=== PATIENT | female | born 1990 ===

== ENCOUNTER 2019-12-07 18:08 | Emergency (ER) | payer BC ==
[~2019-12-07] VITALS: Ht 157.5 cm; Wt 112.5 kg
[2019-12-07 18:56] LABS: BASOPHILS ABSOLUTE AUTO 0.04 K/mm3 (0.00-0.23); BASOPHILS PERCENT AUTO 0 % (0-2); EOSINOPHILS PERCENT AUTO 1 % (0-6); Hematocrit 37.4 % (33.0-51.0); IMMATURE GRAN ABSOLUTE AUTO 0.03 K/mm3 (0.00-0.10); IMMATURE GRAN PERCENT AUTO 0 % (0-1); LYMPHOCYTES PERCENT AUTO 39 % (21-46); MONOCYTES ABSOLUTE AUTO 0.56 K/mm3 (0.16-1.47); MONOCYTES PERCENT AUTO 6 % (4-13); Mean Corpuscular HGB 27.1 pg (26.0-34.0); Mean Corpuscular HGB Conc 32.1 g/dL (31.5-36.5); Mean Corpuscular Volume 85 fL (80-100); Mean Platelet Volume 11.2 fL (9.1-12.4); NEUTROPHILS ABSOLUTE AUTO 5.16 K/mm3 (1.96-9.15); NEUTROPHILS PERCENT AUTO 54 % (41-73); Platelet Count 338 K/mm3 (150-400); RDW Coefficient Variation 14.7 % (11.7-14.2); RDW Standard Deviation 45.4 fL (35.1-46.3); Red Blood Cell Count 4.42 M/mm3 (3.80-5.20); White Blood Cell Count 9.59 K/mm3 (4.00-11.30)
[2019-12-07 19:08] LABS: Source, Urine Clean Catch
[2019-12-07 19:13] LABS: Bilirubin, Urine Neg (Neg); Blood, Urine 5+ (Neg); Glucose Qualitative, Urine Neg (Neg); Ketones, Urine 1+ (Neg); Leukocyte Esterase, Urine Neg (Neg); Nitrite, Urine Neg (Neg); Protein, Urine 2+ (Neg); Specific Gravity, Urine 1.025 (1.003-1.022); Urobilinogen, Urine NORM (Normal)
[2019-12-07 19:19] LABS: Alanine Aminotransfer (ALT/SGP 56 U/L (12-78); Albumin, Blood 3.2 g/dL (3.4-5.0); Albumin/Globulin Ratio 0.8 (0.8-1.8); Alk Phos 118 U/L (50-136); Anion Gap 8 mmol/L (6-16); Aspartate Aminotrans (AST/SGOT 32 U/L (12-37); Bilirubin, Total 0.2 mg/dL (0.1-1.0); Blood Urea Nitrogen 11 mg/dL (8-24); CO2, Blood 22 mmol/L (21-32); Calcium, Blood 9.4 mg/dL (8.5-10.1); Chloride, Blood 107 mmol/L (98-108); Creatinine, Blood 0.52 mg/dL (0.40-1.00); Globulin, Blood 4.1 g/dL (2.2-4.0); Glomerular Filtration Rate >60 (60-); Glucose, Blood 90 mg/dL (70-99); Potassium, Blood 3.7 mmol/L (3.5-5.5); Sodium, Blood 137 mmol/L (136-145); Total Protein, Blood 7.3 g/dL (6.4-8.2)
[2019-12-07 19:21] LABS: Appearance, Urine Hazy (Clear); Color, Urine Yellow (P-Yellow)
[2019-12-07 19:23] LABS: Squamous Epithelial Cells Mod /hpf (Few)
[2019-12-07 19:24] LABS: Bacteria Mod /hpf; Mucus Light (0-Heavy); White Blood Cells, Urine Rare /hpf (0-5)
[2019-12-07 19:41] LABS: Beta HCG, Quantitative, Serum 10886 mIU/mL (0-3)
[2019-12-07] MEDS ORDERED: DDAVP (20:58)
[2019-12-07] MEDS ORDERED: NIFE30ER PO (20:59)
[2019-12-07] MEDS ORDERED: LABE200 PO (20:59)
== END 2019-12-07 21:03 | disposition home or self-care (01) ==
LOC: ER 18:08
PROVIDERS: Physician Assistant
DX: O20.0 Threatened abortion (principal); O99.89 Other specified diseases and conditions complicating pregnancy, childbirth and the puerperium; R19.7 Diarrhea, unspecified; O34.81 Maternal care for other abnormalities of pelvic organs, first trimester; N83.201 Unspecified ovarian cyst, right side; O16.1 Unspecified maternal hypertension, first trimester; Z3A.01 Less than 8 weeks gestation of pregnancy
CPT/HCPCS: 36415; 76801; 76817; 80053; 81001; 84702; 85025; 86900; 86901; 87086; 99284-25

== ENCOUNTER → 2020-07-12 | Outpatient (CLI) | payer BC ==
[~2020-07-12] MED LIST: DDAVP; IBUP800 PO; LABE100 PO; LABE200 PO; NIFE30ER PO; NIFE60ER PO; Percocet 5-3251 EACH
== END ==
LOC: LAB SHORT 11:40 → LAB 11:40
DX: Z34.83 Encounter for supervision of other normal pregnancy, third trimester (principal); Z3A.36 36 weeks gestation of pregnancy
CPT/HCPCS: 87081; 87653

== ENCOUNTER 2020-07-24 11:40 | Inpatient (IN) | payer BC ==
[~2020-07-24] VITALS: Ht 157.5 cm; Wt 108.1 kg
[~2020-07-24 11:40] MED LIST changes: -IBUP800 PO; -LABE100 PO; -NIFE60ER PO; -Percocet 5-3251 EACH
[2020-07-24] MEDS ORDERED: LABE100 PO ×2 (12:40)
[2020-07-24] MEDS ORDERED: NIFE60ER PO ×2 (12:40)
[2020-07-24 13:29] LABS: BASOPHILS ABSOLUTE AUTO 0.03 K/mm3 (0.00-0.23); BASOPHILS PERCENT AUTO 0 % (0-2); EOSINOPHILS ABSOLUTE AUTO 0.06 K/mm3 (0.00-0.68); EOSINOPHILS PERCENT AUTO 1 % (0-6); Hematocrit 37.1 % (33.0-51.0); IMMATURE GRAN ABSOLUTE AUTO 0.04 K/mm3 (0.00-0.10); IMMATURE GRAN PERCENT AUTO 1 % (0-1); LYMPHOCYTES ABSOLUTE AUTO 2.22 K/mm3 (0.84-5.20); LYMPHOCYTES PERCENT AUTO 26 % (21-46); MONOCYTES ABSOLUTE AUTO 0.71 K/mm3 (0.16-1.47); MONOCYTES PERCENT AUTO 8 % (4-13); Mean Corpuscular HGB 27.8 pg (26.0-34.0); Mean Corpuscular HGB Conc 32.3 g/dL (31.5-36.5); Mean Corpuscular Volume 86 fL (80-100); Mean Platelet Volume 12.4 fL (9.1-12.4); NEUTROPHILS ABSOLUTE AUTO 5.43 K/mm3 (1.96-9.15); NEUTROPHILS PERCENT AUTO 64 % (41-73); Platelet Count 261 K/mm3 (150-400); RDW Coefficient Variation 15.1 % (11.7-14.2); RDW Standard Deviation 47.6 fL (35.1-46.3); Red Blood Cell Count 4.31 M/mm3 (3.80-5.20); White Blood Cell Count 8.49 K/mm3 (4.00-11.30)
--- NOTE | 2020-07-24 13:29 | NUR ---
PT NPO [id number]
[2020-07-24 13:48] LABS: Alanine Aminotransfer (ALT/SGP 30 U/L (12-78); Albumin, Blood 2.5 g/dL (3.4-5.0); Albumin/Globulin Ratio 0.6 (0.8-1.8); Alk Phos 117 U/L (50-136); Anion Gap 9 mmol/L (6-16); Aspartate Aminotrans (AST/SGOT 16 U/L (12-37); Bilirubin, Total 0.2 mg/dL (0.1-1.0); Blood Urea Nitrogen 11 mg/dL (8-24); Bun/Creatinine Ratio 17.7 (12.0-20.0); CO2, Blood 23 mmol/L (21-32); Calcium, Blood 10.1 mg/dL (8.5-10.1); Chloride, Blood 110 mmol/L (98-108); Creatinine, Blood 0.62 mg/dL (0.40-1.00); Globulin, Blood 4.3 g/dL (2.2-4.0); Glomerular Filtration Rate >60 (60-); Glucose, Blood 84 mg/dL (70-99); Potassium, Blood 4.1 mmol/L (3.5-5.5); Sodium, Blood 142 mmol/L (136-145); Total Protein, Blood 6.8 g/dL (6.4-8.2)
[2020-07-24 18:13] LABS: PCO2 Cord - Arterial 60.1 mmHg (40-50); PO2 Cord - Arterial 19.5 mmHg (16-20)
[2020-07-24 18:14] LABS: pH Umbilical Cord - Venous 7.35 (7.26-7.35)
[2020-07-24 18:15] LABS: PCO2 Cord - Venous 48.6 mmHg (40-50); PO2 Cord - Venous 25.3 mmHg (28-32)
--- NOTE | 2020-07-24 18:15 | NUR ---
07/24/20 181 Hortencia Brumfield M 1759, DELIVERY VIABLE FEMALE INFANT WEIGHT [id number] 4# 10OZ, HEAD 12.75INCHES, CHEST 11.25 INCHES, LENGTH 18.5 INCHES, 9/9, RIGHT AND LEFT FALLOPIAN TUBES COLLECTED AND SENT TO PATHOLOGY, PLACENTA SENT TO PATHOLOGY, UMBILICAL CORD BLOOD COLLECTED FOR TYPE AND RH GIVEN TO Mee MONTANO RN, UMBIICAL CORD SEGMENT COLLECTED FOR CORD GAES, GIVEN TO RT
--- NOTE | 2020-07-24 21:44 | NUR ---
RECEIVED REPORT FROM SOCRATES GARNER AT 2105 AND ASSUMED CARE OF PT AND AT THIS TIME
[2020-07-25 06:15] LABS: BASOPHILS ABSOLUTE AUTO 0.02 K/mm3 (0.00-0.23); BASOPHILS PERCENT AUTO 0 % (0-2); EOSINOPHILS ABSOLUTE AUTO 0.09 K/mm3 (0.00-0.68); EOSINOPHILS PERCENT AUTO 1 % (0-6); Hematocrit 31.2 % (33.0-51.0); IMMATURE GRAN ABSOLUTE AUTO 0.05 K/mm3 (0.00-0.10); IMMATURE GRAN PERCENT AUTO 1 % (0-1); LYMPHOCYTES ABSOLUTE AUTO 2.65 K/mm3 (0.84-5.20); LYMPHOCYTES PERCENT AUTO 28 % (21-46); MONOCYTES ABSOLUTE AUTO 0.76 K/mm3 (0.16-1.47); MONOCYTES PERCENT AUTO 8 % (4-13); Mean Corpuscular HGB Conc 32.1 g/dL (31.5-36.5); Mean Corpuscular Volume 87 fL (80-100); Mean Platelet Volume 12.6 fL (9.1-12.4); NEUTROPHILS ABSOLUTE AUTO 5.98 K/mm3 (1.96-9.15); NEUTROPHILS PERCENT AUTO 63 % (41-73); Platelet Count 222 K/mm3 (150-400); RDW Coefficient Variation 14.9 % (11.7-14.2); RDW Standard Deviation 48.2 fL (35.1-46.3); Red Blood Cell Count 3.57 M/mm3 (3.80-5.20); White Blood Cell Count 9.55 K/mm3 (4.00-11.30)
--- NOTE | 2020-07-25 09:14 | NUR ---
0900: BALTA KAUR RN JUST LEFT ROOM AND DISCUSSED PLAN TO KEEP NB STS FOR SOME TIME AND TO HAND EXPRESS MILK TO ENCOURAGE NB TO WAKE FOR FEED. DISCUSSED PLAN TO GET OOB TO SHOWER AROUND 1000 TO GIVE NB TIME STS. PT DENIES PAIN, NO COMPLAINTS
--- NOTE | 2020-07-25 10:30 | NUR ---
BARRAZA D/C. PT OOB TO SHOWER, REBECA WELL. LINENS AND GOWN CHANGED, CANDE CARE DONE.
--- NOTE | 2020-07-25 10:44 | NUR ---
PT REMAINS UP AMBULATING IN THE ROOM. REBECA WELL.
--- NOTE | 2020-07-25 12:17 | NUR ---
RN ROUNDED TO HELP W/ . INSTRUCT/DEMO WIDENING LATCH CORRECT POSITIONING AND NIPPLE SHAPE AFTER FEEDS. INSTRUCT/DEMO HAND EXPRESSION TO EXPRESS COLOSTRUM INTO NB MOUTH IF NB IS NOT LATCHING AND FEEDING WELL EVERY 2-3 HOURS. PT HAD NB LATCHED ON AND FEEDING WELL, PT STATES LATCH FELT "PINCHY", INSTRUCT/DEMO WIDENING LATCH W/ CHIN PRESSURE. NB FED FOR A LITTLE BIT W/ CHIN PRESSURE THEN STOPPED AND SHOWED NO INTEREST IN RELATCHING. NB PLACED SKIN TO SKIN. INSTRUCTED PT TO WATCH FOR FEEDING QUES AND TO ATTEMPT TO LATCH NB AT THAT TIME. PT VERBALIZED UNDERSTANDING AND DENIES ANY FURTHER QUESTIONS OR CONCERNS.
--- NOTE | 2020-07-25 14:29 | NUR ---
PARENTS REQUEST NB TO BE WATCHED BY STAFF SO THEY CAN RUN HOME AND GET CLOTHES AND SEE OTHER CHILD.
[2020-07-26] MEDS ORDERED: IBUP800 PO ×2 (14:06)
[2020-07-26] MEDS ORDERED: Percocet 5-3251 EACH ×2 (14:06)
--- NOTE | 2020-07-26 18:36 | NUR ---
PT DISCHARGED TO HOME. DISCHARGE INSTRUCTIONS GIVEN. NO QUESTIONS OR CONCERNS AT THIS TIME. BANDS MATCHED. CAR SEAT CHECKED. PRESCRIPTION GIVEN TO PT. FLU SHOT GIVEN.
== END 2020-07-26 18:25 | disposition home or self-care (01) | DRG 784 ==
LOC: OBS 11:40 → BC 11:40 → OBS 12:33 → BC 23:38
PROVIDERS: ADMIT Obstetrics & Gynecology
PROC: 10D00Z1 Extraction of Products of Conception, Low, Open Approach (ICD-10-PCS; principal; 2020-07-24 15:30)
PROC: 0UT70ZZ Resection of Bilateral Fallopian Tubes, Open Approach (ICD-10-PCS; 2020-07-24 15:30)
PROC: 3E0234Z Introduction of Serum, Toxoid and Vaccine into Muscle, Percutaneous Approach (ICD-10-PCS; 2020-07-26)
DX: O76 Abnormality in fetal heart rate and rhythm complicating labor and delivery (principal); O41.03X0 Oligohydramnios, third trimester, not applicable or unspecified; Z23 Encounter for immunization; O24.420 Gestational diabetes mellitus in childbirth, diet controlled; O32.1XX0 Maternal care for breech presentation, not applicable or unspecified; O34.219 Maternal care for unspecified type scar from previous cesarean delivery; Z3A.38 38 weeks gestation of pregnancy; Z37.0 Single live birth; O99.214 Obesity complicating childbirth; E66.01 Morbid (severe) obesity due to excess calories
CPT/HCPCS: 36415; 80053; 82803; 82947; 85025; 86850; 86900; 86901; J0690; J1885; J2590; J2765; J3010; J7120; Q2038; U0003

== ENCOUNTER → 2021-07-17 | Outpatient (CLI) | payer BC ==
[~2021-07-17] MED LIST changes: +IBUP800 PO; +LABE100 PO; +NIFE60ER PO; +Percocet 5-3251 EACH
[2021-07-19 15:10] LABS: HPV 16 Negative (Negative); HPV 18 Negative (Negative); HPV OTHER HR TYPES Negative (Negative)
== END ==
LOC: LAB 08:40 → LAB SHORT 08:40
PROVIDERS: Student in an Organized Health Care Education/Training Program
DX: Z01.419 Encounter for gynecological examination (general) (routine) without abnormal findings (principal)
CPT/HCPCS: 87624; G0145